=== PATIENT | female | born 1975 | race Caucasian/White ===

== ENCOUNTER → 2020-10-26 | Outpatient (REF) | payer OTHER ==
[~2020-10-26] MED LIST: IBUP100S44 FT; IBUP200C PO; LORT5TAB PO; TYLE325T5 PO
[2020-10-26 13:12] LABS: HEMATOCRIT 38.2 % (36.0-47.0); HEMOGLOBIN 12.2 g/dl (12.0-15.5); MEAN CORPUSCULAR HGB CONC 31.9 g/dl (32.0-36.5); MEAN CORPUSCULAR VOLUME 78.3 fl (80.0-96.0); PLATELET COUNT, AUTOMATED 374 10^3/uL (150-450); RED BLOOD COUNT 4.88 10^6/uL (4.00-5.40); WHITE BLOOD COUNT 6.7 10^3/uL (4.0-10.0)
[2020-10-26 13:51] LABS: ALBUMIN 3.5 GM/DL (3.2-5.2); ALT/SGPT 19 U/L (12-78); BILIRUBIN,TOTAL 0.6 MG/DL (0.2-1.0); BLOOD UREA NITROGEN 13 MG/DL (7-18); CALCIUM LEVEL 8.7 MG/DL (8.5-10.1); CARBON DIOXIDE LEVEL 28 MEQ/L (21-32); CHLORIDE LEVEL 105 MEQ/L (98-107); CHOLESTEROL LEVEL 151 MG/DL (<200); CHOLESTEROL RISK RATIO 1.776 (<5); FERRITIN 5 NG/ML (8-252); FOLLICLE STIMULATING HORMONE 7.3 mIU/mL; GLOMERULAR FILTRATION RATE > 60.0 (>58); GLUCOSE, FASTING 83 MG/DL (70-100); HDL CHOLESTEROL 85 MG/DL (>40); IRON (FE) 38 UG/DL (50-170); LDL CHOLESTEROL 53 MG/DL (<100); LUTEINIZING HORMONE 9.4 mIU/mL; MAGNESIUM LEVEL 2.1 MG/DL (1.8-2.4); NON-HDL-C 66 MG/DL; PERCENT SATURATION 9.2 % (13.2-45.0); POTASSIUM SERUM 4.6 MEQ/L (3.5-5.1); SODIUM LEVEL 138 MEQ/L (136-145); TOTAL 25(OH) VITAMIN D 19.9 NG/ML (30.0-100.0); TOTAL IRON BINDING CAPACITY 412 UG/DL (250-450); TOTAL PROTEIN 6.5 GM/DL (6.4-8.2); TRIGLYCERIDES LEVEL 63 MG/DL (<150)
== END ==
LOC: M SFHCADAM 07:49
PROVIDERS: ATTEND Physician Assistant
DX: J45.20 Mild intermittent asthma, uncomplicated (principal); Z98.84 Bariatric surgery status; Z86.79 Personal history of other diseases of the circulatory system; Z00.00 Encounter for general adult medical examination without abnormal findings; N95.1 Menopausal and female climacteric states; F32.9 Major depressive disorder, single episode, unspecified

== ENCOUNTER → 2021-05-10 | Outpatient (REF) | payer OTHER ==
[2021-05-10 13:00] LABS: HEMATOCRIT 44.1 % (36.0-47.0); MEAN CORPUSCULAR HEMOGLOBIN 30.2 pg (27.0-33.0); MEAN CORPUSCULAR VOLUME 88.7 fl (80.0-96.0); PLATELET COUNT, AUTOMATED 329 10^3/uL (150-450); RED BLOOD COUNT 4.97 10^6/uL (4.00-5.40); WHITE BLOOD COUNT 5.5 10^3/uL (4.0-10.0)
[2021-05-10 13:57] LABS: PERCENT SATURATION 45.9 % (13.2-45.0); TOTAL 25(OH) VITAMIN D 30.3 NG/ML (30.0-100.0)
== END ==
LOC: M SFHCADAM 08:37
PROVIDERS: ATTEND Physician Assistant
DX: E61.1 Iron deficiency (principal); E55.9 Vitamin D deficiency, unspecified

== ENCOUNTER → 2022-05-03 | Outpatient (REF) | payer OTHER ==
[2022-05-03 17:47] LABS: HEMATOCRIT 41.5 % (36.0-47.0); HEMOGLOBIN 14.4 g/dl (12.0-15.5); MEAN CORPUSCULAR HEMOGLOBIN 32.3 pg (27.0-33.0); MEAN CORPUSCULAR HGB CONC 34.7 g/dl (32.0-36.5); PLATELET COUNT, AUTOMATED 314 10^3/uL (150-450); RED BLOOD COUNT 4.46 10^6/uL (4.00-5.40); WHITE BLOOD COUNT 9.1 10^3/uL (4.0-10.0)
[2022-05-03 18:29] LABS: ALBUMIN 3.5 GM/DL (3.2-5.2); ALT/SGPT 21 U/L (12-78); BILIRUBIN,TOTAL 0.8 MG/DL (0.2-1.0); BLOOD UREA NITROGEN 12 MG/DL (7-18); CALCIUM LEVEL 9.2 MG/DL (8.5-10.1); CARBON DIOXIDE LEVEL 27 MEQ/L (21-32); CHLORIDE LEVEL 106 MEQ/L (98-107); CREATININE FOR GFR 0.82 MG/DL (0.55-1.30); FERRITIN 71 NG/ML (8-252); GLOMERULAR FILTRATION RATE > 60.0 (>58); GLUCOSE, FASTING 102 MG/DL (70-100); IRON (FE) 77 UG/DL (50-170); PERCENT SATURATION 24.4 % (13.2-45.0); POTASSIUM SERUM 4.1 MEQ/L (3.5-5.1); SODIUM LEVEL 138 MEQ/L (136-145); TOTAL IRON BINDING CAPACITY 316 UG/DL (250-450); TOTAL PROTEIN 6.4 GM/DL (6.4-8.2)
[2022-05-03 20:01] LABS: TOTAL 25(OH) VITAMIN D 32.7 NG/ML (30.0-100.0)
[2022-05-05 15:39] LABS: VITAMIN B12 LEVEL 419 PG/ML (247-911)
== END ==
LOC: M SFHCADAM 13:03
PROVIDERS: ATTEND Physician Assistant
DX: J45.20 Mild intermittent asthma, uncomplicated (principal); Z98.84 Bariatric surgery status

== ENCOUNTER → 2023-06-25 | Outpatient (REF) | payer BC, OTHER ==
[2023-06-25 13:39] LABS: IRON (FE) 104 UG/DL (50-170); PERCENT SATURATION 32.6 % (13.2-45.0); TOTAL IRON BINDING CAPACITY 319 UG/DL (250-425)
[2023-06-25 13:40] LABS: ALBUMIN 3.8 G/DL (3.2-5.2); ALKALINE PHOSPHATASE 92 U/L (46-116); ALT/SGPT 19 U/L (7.0-40); AST/SGOT 14 U/L (<34); BILIRUBIN,TOTAL 0.5 MG/DL (0.3-1.2); BLOOD UREA NITROGEN 20 MG/DL (9-23); CALCIUM LEVEL 9.4 MG/DL (8.5-10.1); CARBON DIOXIDE LEVEL 28 MMOL/L (20-31); CHLORIDE LEVEL 105 MMOL/L (98-107); CHOLESTEROL LEVEL 163 MG/DL (<200); CHOLESTEROL RISK RATIO 2.02 (<5); CREATININE FOR GFR 0.83 MG/DL (0.55-1.30); GLOMERULAR FILTRATION RATE > 60.0 (>58); GLUCOSE, FASTING 75 MG/DL (60-100); HDL CHOLESTEROL 80.6 MG/DL (>40); LDL CHOLESTEROL 62.4 MG/DL (<100); NON-HDL-C 82.4 MG/DL; POTASSIUM SERUM 4.8 MMOL/L (3.5-5.1); SODIUM LEVEL 141 MMOL/L (136-145); TOTAL 25(OH) VITAMIN D 23.5 NG/ML (20.0-100.0); TOTAL PROTEIN 6.7 G/DL (5.7-8.2); TRIGLYCERIDES LEVEL 100 MG/DL (<150)
[2023-06-25 13:41] LABS: FOLATE > 24.0 NG/ML (>5.4); VITAMIN B12 LEVEL 401 PG/ML (211-911)
[2023-06-25 13:45] LABS: BASO # 0.1 10^3/uL (0.0-0.2); EOS # 0.5 10^3/uL (0.0-0.5); EOS % 8.6 % (0.0-3.0); HEMATOCRIT 44.5 % (36.0-47.0); LYMPH % 15.6 % (24.0-44.0); MEAN CORPUSCULAR HEMOGLOBIN 31.4 pg (27.0-33.0); MEAN CORPUSCULAR HGB CONC 33.7 g/dl (32.0-36.5); MEAN CORPUSCULAR VOLUME 93.3 fl (80.0-96.0); MONO # 0.6 10^3/uL (0.0-0.8); MONO % 9.7 % (2.0-8.0); NEUTROPHILS # 4.1 10^3/uL (1.5-8.5); NEUTROPHILS % 64.8 % (36.0-66.0); PLATELET COUNT, AUTOMATED 300 10^3/uL (150-450); RED BLOOD COUNT 4.77 10^6/uL (4.00-5.40); WHITE BLOOD COUNT 6.3 10^3/uL (4.0-10.0)
[2023-06-25 13:48] LABS: HEMOGLOBIN A1c 4.1 % (4.0-6.0)
== END ==
LOC: M SFHCADAM 08:06
PROVIDERS: ATTEND Physician Assistant
DX: Z00.00 Encounter for general adult medical examination without abnormal findings (principal); I10 Essential (primary) hypertension; Z98.84 Bariatric surgery status; F33.8 Other recurrent depressive disorders

== ENCOUNTER → 2024-04-08 | Outpatient (REF) | payer BC ==
[2024-04-08 13:28] LABS: BASO % 0.6 % (0.0-1.0); EOS # 0.3 10^3/uL (0.0-0.5); EOS % 4.7 % (0.0-3.0); HEMATOCRIT 43.3 % (36.0-47.0); HEMOGLOBIN 15.1 g/dl (12.0-15.5); LYMPH # 1.3 10^3/uL (1.5-5.0); LYMPH % 20.3 % (24.0-44.0); MEAN CORPUSCULAR HEMOGLOBIN 31.7 pg (27.0-33.0); MEAN CORPUSCULAR HGB CONC 34.9 g/dl (32.0-36.5); MONO # 0.5 10^3/uL (0.0-0.8); MONO % 8.4 % (2.0-8.0); NEUTROPHILS # 4.2 10^3/uL (1.5-8.5); NEUTROPHILS % 65.7 % (36.0-66.0); PLATELET COUNT, AUTOMATED 320 10^3/uL (150-450); RED BLOOD COUNT 4.76 10^6/uL (4.00-5.40); WHITE BLOOD COUNT 6.3 10^3/uL (4.0-10.0)
[2024-04-08 13:55] LABS: PERCENT SATURATION 29.2 % (13.2-45.0)
[2024-04-08 13:57] LABS: FREE T4 1.26 NG/DL (0.89-1.76); THYROID STIMULATING HORMONE 1.45 uIU/ML (0.55-4.78)
== END ==
LOC: M SFHCADAM 10:55
PROVIDERS: ATTEND Physician Assistant
DX: R00.2 Palpitations (principal)

== ENCOUNTER → 2024-06-13 | Outpatient (REF) | payer BC ==
[2024-06-13 15:05] LABS: ALBUMIN 3.8 G/DL (3.2-5.2); ALKALINE PHOSPHATASE 91 U/L (35-104); ALT/SGPT 15 U/L (7.0-40); AST/SGOT 8 U/L (<34); BILIRUBIN,TOTAL 0.9 MG/DL (0.3-1.2); BLOOD UREA NITROGEN 17 MG/DL (9-23); CALCIUM LEVEL 9.7 MG/DL (8.5-10.1); CARBON DIOXIDE LEVEL 30 MMOL/L (20-31); CHLORIDE LEVEL 104 MMOL/L (98-107); CHOLESTEROL LEVEL 145 MG/DL (<200); CHOLESTEROL RISK RATIO 1.87 (<5); CREATININE FOR GFR 0.83 MG/DL (0.55-1.30); GLOMERULAR FILTRATION RATE > 60.0 (>51); GLUCOSE, FASTING 63 MG/DL (60-100); HDL CHOLESTEROL 77.4 MG/DL (>40); IRON (FE) 85 UG/DL (50-170); LDL CHOLESTEROL 54.6 MG/DL (<100); NON-HDL-C 67.6 MG/DL; POTASSIUM SERUM 4.5 MMOL/L (3.5-5.1); SODIUM LEVEL 139 MMOL/L (136-145); TOTAL IRON BINDING CAPACITY 293 UG/DL (250-425); TOTAL PROTEIN 7.1 G/DL (5.7-8.2); TRIGLYCERIDES LEVEL 65 MG/DL (<150)
[2024-06-13 15:09] LABS: FERRITIN 85.5 NG/ML (7.3-270.7); FOLATE > 24.0 NG/ML (>5.4)
[2024-06-13 15:11] LABS: VITAMIN B12 LEVEL 505 PG/ML (211-911)
== END ==
LOC: M SFHCADAM 10:38
PROVIDERS: ATTEND Physician Assistant
DX: I10 Essential (primary) hypertension (principal); F33.8 Other recurrent depressive disorders; J45.20 Mild intermittent asthma, uncomplicated; Z98.84 Bariatric surgery status; Z13.220 Encounter for screening for lipoid disorders; Z13.1 Encounter for screening for diabetes mellitus

== ENCOUNTER 2024-09-30 08:43 | Day surgery (SDC) | payer BC ==
[~2024-09-30] VITALS: Ht 149.9 cm; Wt 65.8 kg
[~2024-09-30 08:43] MED LIST changes: +BUPR-597 PO; +MULTTAB86 PO; +TIRZ5PEN3 SC
[2024-09-30] MEDS ORDERED: propofoL 200 MG/20 ML VIAL As Ordered ONE (09:12)
[2024-09-30] MEDS ORDERED: LIDOCAINE 2% 100MG/5ML SDV (FOR ANES.) As Ordered ONE (09:12)
[2024-09-30 10:53] VITALS: TEMP 97.3
[2024-09-30 11:06] VITALS: BP 118/58; O2SAT 100
== END 2024-09-30 11:15 | disposition home or self-care (01) ==
LOC: M OPP 08:43
PROVIDERS: ATTEND Surgery
DX: Z12.11 Encounter for screening for malignant neoplasm of colon (principal); K64.0 First degree hemorrhoids; Z88.0 Allergy status to penicillin; Z79.85 Long-term (current) use of injectable non-insulin antidiabetic drugs; Z79.899 Other long term (current) drug therapy; J45.909 Unspecified asthma, uncomplicated; Z98.84 Bariatric surgery status

== ENCOUNTER → 2025-06-16 | Outpatient (REF) | payer BC ==
[~2025-06-16] MED LIST changes: -BUPR-597 PO; +BUPR-766 PO
[2025-06-16 14:16] LABS: BASO # 0.0 10^3/uL (0.0-0.2); BASO % 0.8 % (0.0-1.0); EOS # 0.2 10^3/uL (0.0-0.5); EOS % 3.4 % (0.0-3.0); LYMPH # 1.1 10^3/uL (1.5-5.0); LYMPH % 22.6 % (24.0-44.0); MONO # 0.5 10^3/uL (0.0-0.8); MONO % 9.7 % (2.0-8.0); NEUTROPHILS # 3.0 10^3/uL (1.5-8.5); NEUTROPHILS % 63.3 % (36.0-66.0); PLATELET COUNT, AUTOMATED 314 10^3/uL (150-450)
[2025-06-16 14:24] LABS: IRON (FE) 93 UG/DL (50-170)
[2025-06-16 14:25] LABS: ALT/SGPT 24 U/L (7.0-40); AST/SGOT 21 U/L (<34); CALCIUM LEVEL 8.5 MG/DL (8.5-10.1); CARBON DIOXIDE LEVEL 28 MMOL/L (20-31); CHLORIDE LEVEL 105 MMOL/L (98-107); CHOLESTEROL LEVEL 148 MG/DL (<200); CHOLESTEROL RISK RATIO 2.00 (<5); CREATININE FOR GFR 0.70 MG/DL (0.55-1.30); GLOMERULAR FILTRATION RATE > 90.0 (>51); LDL CHOLESTEROL 57.7 MG/DL (<100); NON-HDL-C 74.1 MG/DL; PERCENT SATURATION 30.1 % (13.2-45.0); POTASSIUM SERUM 4.6 MMOL/L (3.5-5.1); SODIUM LEVEL 142 MMOL/L (136-145); TRIGLYCERIDES LEVEL 82 MG/DL (<150)
[2025-06-16 14:31] LABS: ESTIMATED AVERAGE GLUCOSE 80.0 MG/DL (60-110)
[2025-06-16 14:32] LABS: FREE T4 0.96 NG/DL (0.89-1.76)
[2025-06-16 14:34] LABS: TOTAL 25(OH) VITAMIN D 37.6 NG/ML (20.0-100.0); VITAMIN B12 LEVEL 301 PG/ML (211-911)
== END ==
LOC: M SFHCADAM 08:41
PROVIDERS: ATTEND Physician Assistant
DX: Z00.00 Encounter for general adult medical examination without abnormal findings (principal); Z98.84 Bariatric surgery status; Z13.1 Encounter for screening for diabetes mellitus; Z13.220 Encounter for screening for lipoid disorders

== ENCOUNTER → 2025-06-16 | Outpatient (CLI) | payer BC | LOC: M ADAMS 08:45 | PROVIDERS: ATTEND Physician Assistant | DX: M75.82 Other shoulder lesions, left shoulder (principal); M75.32 Calcific tendinitis of left shoulder ==